=== PATIENT | male | born 1955 | race Caucasian/White ===

== ENCOUNTER 2016-12-22 10:02 | Day surgery (SDC) | payer OTHER ==
[~2016-12-22] VITALS: Ht 165.1 cm; Wt 88.5 kg
--- NOTE | ~2016-12-22 | O ---
[facility] [place] [address] OPERATIVE REPORT Name: SIDNEY PADRON Room #: DEP [facility].#: [id number] Admission: 12/22/16 Attend Phys: Mike Malagon MD Discharge: 12/22/16 Date of : 57 Report #: [id number] THIS REPORT FOR: //name// CC: JORDON Malagon DATE OF SERVICE: 12/22/2016 PREOPERATIVE DIAGNOSIS: Right leg wound dehiscence. POSTOPERATIVE DIAGNOSIS: Right leg wound dehiscence. PROCEDURE: Irrigation and debridement and wound closure, right leg. SURGEON: Mike Malagon M.D. EMD SPECIAL EDUCATION TEACHER: ZIYAD Gates. ANESTHESIA: General. ESTIMATED BLOOD LOSS: 5 mL. DRAINS: None. TOURNIQUET TIME: 15 minutes. DESCRIPTION OF PROCEDURE: The patient brought to the operating room where he was placed under general anesthesia. Once under adequate general anesthesia, his right lower extremity was prepped and draped in sterile manner. Extremity was elevated and a tourniquet placed to 300 mmHg. The patient's wound was then debrided down to the muscle and then closed with 0 PDS suture for the fascial layer and 2-0 nylon suture for the skin. Once complete, the wound was dressed with a sterile soft compressive dressing. Tourniquet was let down at 15 minutes. There were no complications from the procedure. The patient tolerated the procedure well and went to recovery room without incident. <ELECTRONICALLY SIGNED> By: Mike Malagon MD 01/02/17 0801 [id number] Mike Malagon MD /nt
[2016-12-22] MEDS ORDERED: ASPIR 8181 M1 PO (11:43)
[2016-12-22] MEDS ORDERED: ATORVASTATIN CA40 MG PO (11:44)
[2016-12-22] MEDS ORDERED: PLAVIX 75 MG TA75 M1 PO (11:44)
[2016-12-22] MEDS ORDERED: NEURONTIN 300300 M1 PO (11:45)
[2016-12-22] MEDS ORDERED: MS CONTIN15 MG PO (11:46)
[2016-12-22] MEDS ORDERED: OMEPRAZOLE40 MG PO (11:47)
[2016-12-22] MEDS ORDERED: PHENYTOIN SODI100 M3 PO (11:49)
[2016-12-22] MEDS ORDERED: KEPPRA 500 MG500 M1 PO (11:51)
[2016-12-22] MEDS ORDERED: ZOLOFT50 MG PO (11:51)
[2016-12-22] MEDS ORDERED: CALCIUM 600 +1 EAC2 PO (11:53)
[2016-12-22 11:55] LABS: HEMATOCRIT 38.3 % (42.0-52.0); HEMOGLOBIN 12.7 gm/dL (14.0-18.0); MCH 26.9 pg (26.0-34.0); MCHC 33.2 g/dL (28.0-37.0); MCV 80.9 fL (80.0-100.0); RBC 4.73 mil/uL (4.50-6.00); RDW 15.2 % (10.5-14.5); WBC 7.9 thou/uL (4.0-11.0)
[2016-12-22] MEDS ORDERED: REMERON15 MG PO (11:55)
[2016-12-22] MEDS ORDERED: LIPITOR 20 MG T20 M1 PO (11:56)
[2016-12-22] MEDS ORDERED: TOPROL XL25 MG PO (11:58)
[2016-12-22] MEDS ORDERED: AZITHROMYCIN 2250 MG PO (11:59)
[2016-12-22] MEDS ORDERED: RIFAMPIN 300 M300 M1 PO (11:59)
[2016-12-22 12:03] LABS: CALCIUM 9.4 mg/dL (8.5-10.1); CREATININE 0.9 mg/dL (0.7-1.3); POTASSIUM 4.3 mmol/L (3.5-5.1)
[2016-12-22] MEDS ORDERED: LEVAQUIN 750 M750 MG PO (12:39)
[2016-12-22 13:20] VITALS: BP 106/66
[2016-12-22 14:04] VITALS: BP 106/66
== END 2016-12-22 13:00 ==
LOC: OR 10:02 → TBA 10:04 → OR 13:00
PROVIDERS: Student in an Organized Health Care Education/Training Program
DX: T81.30XA Disruption of wound, unspecified, initial encounter (principal); Z79.82 Long term (current) use of aspirin; Z79.899 Other long term (current) drug therapy
CPT/HCPCS: 50010; 50101; 50386; 56525; 57091; 62110; 62900; 70005

== ENCOUNTER → 2017-01-08 | Outpatient (CLI) | payer OTHER ==
[~2017-01-08] MED LIST: ASPIR 8181 M1 PO; ATORVASTATIN CA40 MG PO; AZITHROMYCIN 2250 MG PO; CALCIUM 600 +1 EAC2 PO; KEPPRA 500 MG500 M1 PO; LEVAQUIN 750 M750 MG PO; LIPITOR 20 MG T20 M1 PO; MS CONTIN15 MG PO; NEURONTIN 300300 M1 PO; OMEPRAZOLE40 MG PO; PHENYTOIN SODI100 M3 PO; PLAVIX 75 MG TA75 M1 PO; REMERON15 MG PO; RIFAMPIN 300 M300 M1 PO; TOPROL XL25 MG PO; ZOLOFT50 MG PO
== END ==
LOC: HYPER 06:57
DX: T81.31XA Disruption of external operation (surgical) wound, not elsewhere classified, initial encounter (principal); J43.9 Emphysema, unspecified; I25.10 Atherosclerotic heart disease of native coronary artery without angina pectoris; E78.5 Hyperlipidemia, unspecified; I10 Essential (primary) hypertension; Z86.73 Personal history of transient ischemic attack (TIA), and cerebral infarction without residual deficits; F32.9 Major depressive disorder, single episode, unspecified; M19.90 Unspecified osteoarthritis, unspecified site; M86.8X8 Other osteomyelitis, other site; F17.210 Nicotine dependence, cigarettes, uncomplicated; Y92.89 Other specified places as the place of occurrence of the external cause; Y83.8 Other surgical procedures as the cause of abnormal reaction of the patient, or of later complication, without mention of misadventure at the time of the procedure

== ENCOUNTER → 2017-01-15 | Outpatient (CLI) | payer OTHER | LOC: HYPER 07:20 | DX: T81.31XD Disruption of external operation (surgical) wound, not elsewhere classified, subsequent encounter (principal); Z72.0 Tobacco use; J44.9 Chronic obstructive pulmonary disease, unspecified; I25.10 Atherosclerotic heart disease of native coronary artery without angina pectoris; E78.5 Hyperlipidemia, unspecified; I10 Essential (primary) hypertension; Z86.73 Personal history of transient ischemic attack (TIA), and cerebral infarction without residual deficits; F32.9 Major depressive disorder, single episode, unspecified; M19.90 Unspecified osteoarthritis, unspecified site; M86.68 Other chronic osteomyelitis, other site; M06.9 Rheumatoid arthritis, unspecified; Z95.1 Presence of aortocoronary bypass graft; F17.210 Nicotine dependence, cigarettes, uncomplicated; Z72.89 Other problems related to lifestyle; Y83.8 Other surgical procedures as the cause of abnormal reaction of the patient, or of later complication, without mention of misadventure at the time of the procedure ==

== ENCOUNTER → 2017-01-31 | Outpatient (CLI) | payer OTHER | LOC: HYPER 07:06 | DX: T81.31XD Disruption of external operation (surgical) wound, not elsewhere classified, subsequent encounter (principal); J44.9 Chronic obstructive pulmonary disease, unspecified; I25.10 Atherosclerotic heart disease of native coronary artery without angina pectoris; E78.5 Hyperlipidemia, unspecified; I10 Essential (primary) hypertension; M19.90 Unspecified osteoarthritis, unspecified site; M86.9 Osteomyelitis, unspecified; M06.9 Rheumatoid arthritis, unspecified; K21.9 Gastro-esophageal reflux disease without esophagitis; F17.210 Nicotine dependence, cigarettes, uncomplicated; F32.9 Major depressive disorder, single episode, unspecified; Z86.73 Personal history of transient ischemic attack (TIA), and cerebral infarction without residual deficits; Z95.1 Presence of aortocoronary bypass graft; Y83.8 Other surgical procedures as the cause of abnormal reaction of the patient, or of later complication, without mention of misadventure at the time of the procedure ==

== ENCOUNTER → 2017-02-26 | Outpatient (CLI) | payer OTHER | LOC: HYPER 02-14 06:57 | DX: T87.81 Dehiscence of amputation stump (principal); J44.9 Chronic obstructive pulmonary disease, unspecified; I25.10 Atherosclerotic heart disease of native coronary artery without angina pectoris; E78.5 Hyperlipidemia, unspecified; I10 Essential (primary) hypertension; M19.90 Unspecified osteoarthritis, unspecified site; M86.9 Osteomyelitis, unspecified; M06.9 Rheumatoid arthritis, unspecified; K21.9 Gastro-esophageal reflux disease without esophagitis; F17.210 Nicotine dependence, cigarettes, uncomplicated; F32.9 Major depressive disorder, single episode, unspecified; Z86.73 Personal history of transient ischemic attack (TIA), and cerebral infarction without residual deficits; Z95.1 Presence of aortocoronary bypass graft; Y83.5 Amputation of limb(s) as the cause of abnormal reaction of the patient, or of later complication, without mention of misadventure at the time of the procedure ==

== ENCOUNTER → 2017-04-04 | Outpatient (CLI) | payer OTHER | LOC: HYPER 06:52 | DX: T81.31XD Disruption of external operation (surgical) wound, not elsewhere classified, subsequent encounter (principal); T23.321D Burn of third degree of single right finger (nail) except thumb, subsequent encounter; T31.0 Burns involving less than 10% of body surface; S61.202D Unspecified open wound of right middle finger without damage to nail, subsequent encounter; J44.9 Chronic obstructive pulmonary disease, unspecified; I25.10 Atherosclerotic heart disease of native coronary artery without angina pectoris; E78.5 Hyperlipidemia, unspecified; I10 Essential (primary) hypertension; M19.90 Unspecified osteoarthritis, unspecified site; M86.9 Osteomyelitis, unspecified; M06.9 Rheumatoid arthritis, unspecified; K21.9 Gastro-esophageal reflux disease without esophagitis; F17.210 Nicotine dependence, cigarettes, uncomplicated; F32.9 Major depressive disorder, single episode, unspecified; Z86.73 Personal history of transient ischemic attack (TIA), and cerebral infarction without residual deficits; Z95.1 Presence of aortocoronary bypass graft; X08.8XXD Exposure to other specified smoke, fire and flames, subsequent encounter; X58.XXXD Exposure to other specified factors, subsequent encounter; Y83.8 Other surgical procedures as the cause of abnormal reaction of the patient, or of later complication, without mention of misadventure at the time of the procedure ==

== ENCOUNTER → 2017-04-18 | Outpatient (CLI) | payer OTHER | LOC: HYPER 06:47 | DX: T81.31XD Disruption of external operation (surgical) wound, not elsewhere classified, subsequent encounter (principal); I10 Essential (primary) hypertension; I25.10 Atherosclerotic heart disease of native coronary artery without angina pectoris; E78.5 Hyperlipidemia, unspecified; M86.8X8 Other osteomyelitis, other site; M06.9 Rheumatoid arthritis, unspecified; J43.9 Emphysema, unspecified; F32.9 Major depressive disorder, single episode, unspecified; F17.210 Nicotine dependence, cigarettes, uncomplicated; Z86.73 Personal history of transient ischemic attack (TIA), and cerebral infarction without residual deficits; Z95.1 Presence of aortocoronary bypass graft; Y83.8 Other surgical procedures as the cause of abnormal reaction of the patient, or of later complication, without mention of misadventure at the time of the procedure ==

== ENCOUNTER → 2017-05-09 | Outpatient (CLI) | payer OTHER | LOC: HYPER 08:14 | DX: T87.89 Other complications of amputation stump (principal); J43.9 Emphysema, unspecified; I25.10 Atherosclerotic heart disease of native coronary artery without angina pectoris; E78.5 Hyperlipidemia, unspecified; I10 Essential (primary) hypertension; F32.9 Major depressive disorder, single episode, unspecified; M19.90 Unspecified osteoarthritis, unspecified site; M06.9 Rheumatoid arthritis, unspecified; M86.68 Other chronic osteomyelitis, other site; K21.9 Gastro-esophageal reflux disease without esophagitis; F17.210 Nicotine dependence, cigarettes, uncomplicated; Z86.73 Personal history of transient ischemic attack (TIA), and cerebral infarction without residual deficits; Z95.1 Presence of aortocoronary bypass graft; Y83.5 Amputation of limb(s) as the cause of abnormal reaction of the patient, or of later complication, without mention of misadventure at the time of the procedure ==

== ENCOUNTER → 2017-10-24 | Outpatient (CLI) | payer OTHER | LOC: HYPER 10-23 10:53 | DX: T87.89 Other complications of amputation stump (principal); L89.893 Pressure ulcer of other site, stage 3; I10 Essential (primary) hypertension; I25.10 Atherosclerotic heart disease of native coronary artery without angina pectoris; L84 Corns and callosities; E78.5 Hyperlipidemia, unspecified; M86.8X8 Other osteomyelitis, other site; M19.90 Unspecified osteoarthritis, unspecified site; M06.9 Rheumatoid arthritis, unspecified; J43.9 Emphysema, unspecified; F17.200 Nicotine dependence, unspecified, uncomplicated; F41.9 Anxiety disorder, unspecified; F32.9 Major depressive disorder, single episode, unspecified; Z95.1 Presence of aortocoronary bypass graft; Z89.511 Acquired absence of right leg below knee; Z86.73 Personal history of transient ischemic attack (TIA), and cerebral infarction without residual deficits; Z89.021 Acquired absence of right finger(s); Y83.5 Amputation of limb(s) as the cause of abnormal reaction of the patient, or of later complication, without mention of misadventure at the time of the procedure ==